=== PATIENT | female | born 1965 | race Caucasian/White ===

== ENCOUNTER → 2020-10-29 | Outpatient (CLI) | payer OTHER ==
[~2020-10-29] MED LIST: ASPIRIN 325MG325 MG PO; CYCLOBENZAPRINE10 MG PO; HYDROCODON-ACE1 EAC6 PO; LASIX20 MG PO; MOBIC15 MG PO; TRAZODONE HCL100 MG PO; ULTRAM50 MG PO
[2020-10-29 09:00] LABS: RED BLOOD COUNT 4.45 M/UL (4.00-5.10); WHITE BLOOD COUNT 7.7 K/UL (4.5-11.0)
[2020-10-29 09:20] LABS: BUN/CREATININE RATIO 27 (0-10)
== END ==
LOC: OPSV2 07:55 → EDSTATUS 08:00 → OPSV2 08:00
PROVIDERS: Orthopaedic Surgery
DX: Z01.818 Encounter for other preprocedural examination (principal); M17.11 Unilateral primary osteoarthritis, right knee; R94.31 Abnormal electrocardiogram [ECG] [EKG]
CPT/HCPCS: 36415; 80048; 81001; 85025; 87081; 93005

== ENCOUNTER 2020-11-21 08:31 | Day surgery (SDC) | payer OTHER ==
[~2020-11-21] VITALS: Ht 160 cm; Wt 106.6 kg
[~2020-11-21 08:31] MED LIST changes: -ASPIRIN 325MG325 MG PO; -HYDROCODON-ACE1 EAC6 PO
[2020-11-21 09:36] LABS: BUN/CREATININE RATIO 25 (0-10)
[2020-11-22 05:04] LABS: HEMOGLOBIN 12.2 gm/dl (12.3-15.3); RED BLOOD COUNT 4.28 M/UL (4.00-5.10); WHITE BLOOD COUNT 11.2 K/UL (4.5-11.0)
[2020-11-22 05:18] LABS: BUN/CREATININE RATIO 24 (0-10)
[2020-11-22] MEDS ORDERED: HYDROCODON-ACE1 EAC6 PO (07:26)
[2020-11-22] MEDS ORDERED: ULTRAM50 MG PO (07:26)
[2020-11-22] MEDS ORDERED: ASPIRIN 325MG325 MG PO (09:17)
== END 2020-11-22 12:27 | disposition home or self-care (01) ==
LOC: OR 08:31 → M/S 14:00 → OR 11-22 12:27
PROVIDERS: Orthopaedic Surgery
DX: M17.0 Bilateral primary osteoarthritis of knee (principal); G89.18 Other acute postprocedural pain; F17.210 Nicotine dependence, cigarettes, uncomplicated; M25.562 Pain in left knee; G89.29 Other chronic pain; M81.0 Age-related osteoporosis without current pathological fracture; Z95.2 Presence of prosthetic heart valve; Z68.41 Body mass index [BMI] 40.0-44.9, adult; Z20.822 Contact with and (suspected) exposure to COVID-19; R94.31 Abnormal electrocardiogram [ECG] [EKG]
CPT/HCPCS: 36415; 73560; 76000; 80048; 85025; 86850; 86900; 86901; 97116-GP-CQ; 97161; 97166; C1776; J0171; J0690; J1100; J1170; J1885; J2001; J2250; J2405; J2704; J2795; J3010; J3370; J7120